=== PATIENT | female | born 1950 | race Caucasian/White ===

== ENCOUNTER 2017-11-07 05:21 | Inpatient (IN) | payer OTHER ==
[~2017-11-07] VITALS: Ht 152.4 cm; Wt 52.6 kg
[~2017-11-07 05:21] MED LIST: ACYC800 PO; CEPH500 PO; FLUSAL2505 IH; HYDACE5 PO; LEVSOD100; PROM25 PO; [UNRECOGNIZED DRUG - OTHER]; [UNRECOGNIZED DRUG - REMARK]; [UNRECOGNIZED DRUG - REMARK]
[2017-11-07 06:08] LABS: Hematocrit 31.6 % (33.0-51.0); Hemoglobin 11.1 g/dL (11.5-16.0); Mean Corpuscular HGB Conc 35.1 g/dL (31.5-36.5); Mean Corpuscular Volume 80 fL (80-100); Mean Platelet Volume 9.4 fL (9.1-12.4); Platelet Count 538 K/mm3 (150-400); RDW Coefficient Variation 14.6 % (11.7-14.2); RDW Standard Deviation 42.7 fL (35.1-46.3); Red Blood Cell Count 3.97 M/mm3 (3.80-5.20); White Blood Cell Count 7.69 K/mm3 (4.00-11.30)
[2017-11-07 06:28] LABS: Alanine Aminotransfer (ALT/SGP 33 U/L (12-78); Albumin, Blood 1.8 g/dL (3.4-5.0); Albumin/Globulin Ratio 0.4 (0.8-1.8); Alk Phos 106 U/L (50-136); Anion Gap 12 mmol/L (6-16); Aspartate Aminotrans (AST/SGOT 53 U/L (12-37); Bilirubin, Total 0.9 mg/dL (0.1-1.0); Blood Urea Nitrogen 14 mg/dL (8-24); Bun/Creatinine Ratio 23.1 (12.0-20.0); CO2, Blood 21 mmol/L (21-32); Calcium, Blood 7.9 mg/dL (8.5-10.1); Chloride, Blood 101 mmol/L (98-108); Creatinine, Blood 0.61 mg/dL (0.40-1.00); Globulin, Blood 5.1 g/dL (2.2-4.0); Glomerular Filtration Rate >60 (60-); Glucose, Blood 120 mg/dL (70-99); Potassium, Blood 2.6 mmol/L (3.5-5.5); Sodium, Blood 134 mmol/L (136-145); Total Protein, Blood 6.9 g/dL (6.4-8.2); Troponin I 0.022 ng/mL (0.000-0.040)
[2017-11-07 06:30] LABS: BAND PERCENT MAN 10 % (0-8); BASOPHILS PERCENT MAN 0 % (0-2); EOSINOPHILS PERCENT MAN 0 % (0-6); LYMPHOCYTES % ATYPICAL MANUAL 1 % (0-0); LYMPHOCYTES ABSOLUTE MAN 0.69 K/mm3 (0.84-5.20); LYMPHOCYTES PERCENT MAN 8 % (21-46); MONOCYTES ABSOLUTE MAN 0.46 K/mm3 (0.16-1.47); MONOCYTES PERCENT MAN 6 % (4-13); MYELOCYTE ABSOLUTE MAN 0.07 K/mm3 (0.00-0.00); MYELOCYTE PERCENT MAN 1 % (0-0); NEUTROPHILS ABSOLUTE MAN 6.45 K/mm3 (1.96-9.15); SEG NEUTROPHILS PERCENT MAN 74 % (41-73); TOTAL CELLS COUNTED 100
[2017-11-07 10:52] LABS: International Normalized Ratio 1.04; Prothrombin Time Results 10.7 Sec (9.7-11.5)
[2017-11-07 11:51] LABS: Appearance, Urine Clear (Clear); Bilirubin, Urine Neg (Neg); Blood, Urine Neg (Neg); Color, Urine Yellow (P-Yellow); Glucose Qualitative, Urine Neg (Neg); Ketones, Urine Neg (Neg); Leukocyte Esterase, Urine Neg (Neg); Nitrite, Urine Neg (Neg); Protein, Urine 1+ (Neg); Specific Gravity, Urine 1.015 (1.003-1.022); Urobilinogen, Urine 1+ (Normal)
[2017-11-07 11:54] LABS: Hematocrit 26.7 % (33.0-51.0); Mean Corpuscular HGB 27.6 pg (26.0-34.0); Mean Corpuscular HGB Conc 33.7 g/dL (31.5-36.5); Mean Corpuscular Volume 82 fL (80-100); Mean Platelet Volume 9.8 fL (9.1-12.4); Platelet Count 472 K/mm3 (150-400); RDW Coefficient Variation 14.9 % (11.7-14.2); RDW Standard Deviation 44.6 fL (35.1-46.3); Red Blood Cell Count 3.26 M/mm3 (3.80-5.20); White Blood Cell Count 6.03 K/mm3 (4.00-11.30)
[2017-11-07 12:01] LABS: Anion Gap 9 mmol/L (6-16); Blood Urea Nitrogen 10 mg/dL (8-24); Bun/Creatinine Ratio 20.8 (12.0-20.0); CO2, Blood 22 mmol/L (21-32); Calcium, Blood 6.8 mg/dL (8.5-10.1); Chloride, Blood 107 mmol/L (98-108); Creatinine, Blood 0.48 mg/dL (0.40-1.00); Glomerular Filtration Rate >60 (60-); Glucose, Blood 97 mg/dL (70-99); Potassium, Blood 3.1 mmol/L (3.5-5.5); Sodium, Blood 138 mmol/L (136-145)
[2017-11-07 12:18] LABS: BAND PERCENT MAN 16 % (0-8); BASOPHILS PERCENT MAN 0 % (0-2); EOSINOPHILS PERCENT MAN 0 % (0-6); LYMPHOCYTES ABSOLUTE MAN 1.08 K/mm3 (0.84-5.20); LYMPHOCYTES PERCENT MAN 18 % (21-46); MONOCYTES ABSOLUTE MAN 0.72 K/mm3 (0.16-1.47); MONOCYTES PERCENT MAN 12 % (4-13); MYELOCYTE ABSOLUTE MAN 0.06 K/mm3 (0.00-0.00); MYELOCYTE PERCENT MAN 1 % (0-0); NEUTROPHILS ABSOLUTE MAN 4.16 K/mm3 (1.96-9.15); SEG NEUTROPHILS PERCENT MAN 53 % (41-73); TOTAL CELLS COUNTED 100
[2017-11-07 16:21] LABS: PCO2 Arterial 47.4 mmHg (35-45); PO2 Arterial 104 mmHg (80-100)
[2017-11-07 16:22] LABS: pH Blood Arterial 7.29 (7.35-7.45)
[2017-11-07 19:25] LABS: Anion Gap 5 mmol/L (6-16); Blood Urea Nitrogen 8 mg/dL (8-24); Bun/Creatinine Ratio 17.5 (12.0-20.0); CO2, Blood 24 mmol/L (21-32); Calcium, Blood 6.6 mg/dL (8.5-10.1); Chloride, Blood 109 mmol/L (98-108); Creatinine, Blood 0.46 mg/dL (0.40-1.00); Glomerular Filtration Rate >60 (60-); Glucose, Blood 119 mg/dL (70-99); Magnesium, Blood 1.5 mg/dL (1.6-2.4); Phosphorus, Blood 2.4 mg/dL (2.5-4.9); Potassium, Blood 3.7 mmol/L (3.5-5.5); Sodium, Blood 138 mmol/L (136-145)
[2017-11-08 04:37] LABS: Hematocrit 24.8 % (33.0-51.0); Hemoglobin 8.4 g/dL (11.5-16.0); Mean Corpuscular HGB Conc 33.9 g/dL (31.5-36.5); Mean Corpuscular Volume 83 fL (80-100); Mean Platelet Volume 9.5 fL (9.1-12.4); Platelet Count 386 K/mm3 (150-400); RDW Coefficient Variation 15.4 % (11.7-14.2); RDW Standard Deviation 46.2 fL (35.1-46.3)
[2017-11-08 04:54] LABS: Alanine Aminotransfer (ALT/SGP 18 U/L (12-78); Albumin, Blood 0.9 g/dL (3.4-5.0); Alk Phos 54 U/L (50-136); Anion Gap 7 mmol/L (6-16); Aspartate Aminotrans (AST/SGOT 20 U/L (12-37); Bilirubin, Total 0.3 mg/dL (0.1-1.0); Blood Urea Nitrogen 8 mg/dL (8-24); Bun/Creatinine Ratio 20.1 (12.0-20.0); CO2, Blood 24 mmol/L (21-32); Calcium, Blood 6.4 mg/dL (8.5-10.1); Chloride, Blood 107 mmol/L (98-108); Glomerular Filtration Rate >60 (60-); Glucose, Blood 235 mg/dL (70-99); Phosphorus, Blood 1.1 mg/dL (2.5-4.9); Potassium, Blood 2.6 mmol/L (3.5-5.5); Sodium, Blood 138 mmol/L (136-145)
[2017-11-08 04:55] LABS: BAND PERCENT MAN 26 % (0-8); BASOPHILS PERCENT MAN 0 % (0-2); EOSINOPHILS ABSOLUTE MAN 0.18 K/mm3 (0.00-0.68); EOSINOPHILS PERCENT MAN 2 % (0-6); LYMPHOCYTES ABSOLUTE MAN 0.63 K/mm3 (0.84-5.20); LYMPHOCYTES PERCENT MAN 7 % (21-46); METAMYELOCYTE ABSOLUTE MAN 0.27 K/mm3 (0.00-0.00); METAMYELOCYTE PERCENT MAN 3 % (0-0); MONOCYTES ABSOLUTE MAN 0.45 K/mm3 (0.16-1.47); MONOCYTES PERCENT MAN 5 % (4-13); NEUTROPHILS ABSOLUTE MAN 7.47 K/mm3 (1.96-9.15); SEG NEUTROPHILS PERCENT MAN 57 % (41-73); TOTAL CELLS COUNTED 100
[2017-11-08 04:59] LABS: Albumin/Globulin Ratio 0.3 (0.8-1.8); Globulin, Blood 2.9 g/dL (2.2-4.0)
[2017-11-08 05:37] LABS: Total Protein, Blood 3.8 g/dL (6.4-8.2)
[2017-11-08 05:50] LABS: PCO2 Arterial 35.3 mmHg (35-45); PO2 Arterial 71.5 mmHg (80-100); pH Blood Arterial 7.45 (7.35-7.45)
[2017-11-08 13:36] LABS: Phosphorus, Blood 3.8 mg/dL (2.5-4.9); Potassium, Blood 2.9 mmol/L (3.5-5.5)
[2017-11-09 04:06] LABS: BASOPHILS ABSOLUTE AUTO 0.05 K/mm3 (0.00-0.23); BASOPHILS PERCENT AUTO 0 % (0-2); Hemoglobin 7.8 g/dL (11.5-16.0); Mean Corpuscular HGB 27.6 pg (26.0-34.0); Mean Corpuscular HGB Conc 33.9 g/dL (31.5-36.5); Mean Corpuscular Volume 81 fL (80-100); Mean Platelet Volume 9.6 fL (9.1-12.4); Platelet Count 418 K/mm3 (150-400); RDW Coefficient Variation 15.3 % (11.7-14.2); RDW Standard Deviation 44.9 fL (35.1-46.3); Red Blood Cell Count 2.83 M/mm3 (3.80-5.20)
[2017-11-09 04:10] LABS: EOSINOPHILS ABSOLUTE AUTO 0.37 K/mm3 (0.00-0.68); EOSINOPHILS PERCENT AUTO 3 % (0-6); IMMATURE GRAN PERCENT AUTO 5 % (0-1); LYMPHOCYTES ABSOLUTE AUTO 1.51 K/mm3 (0.84-5.20); LYMPHOCYTES PERCENT AUTO 13 % (21-46); MONOCYTES ABSOLUTE AUTO 0.98 K/mm3 (0.16-1.47); MONOCYTES PERCENT AUTO 9 % (4-13); NEUTROPHILS ABSOLUTE AUTO 7.89 K/mm3 (1.96-9.15); NEUTROPHILS PERCENT AUTO 69 % (41-73)
[2017-11-09 04:23] LABS: Anion Gap 7 mmol/L (6-16); Blood Urea Nitrogen 5 mg/dL (8-24); Bun/Creatinine Ratio 10.6 (12.0-20.0); CO2, Blood 28 mmol/L (21-32); Calcium, Blood 6.9 mg/dL (8.5-10.1); Chloride, Blood 104 mmol/L (98-108); Creatinine, Blood 0.47 mg/dL (0.40-1.00); Glomerular Filtration Rate >60 (60-); Glucose, Blood 127 mg/dL (70-99); Magnesium, Blood 1.6 mg/dL (1.6-2.4); Phosphorus, Blood 3.2 mg/dL (2.5-4.9); Potassium, Blood 3.4 mmol/L (3.5-5.5); Sodium, Blood 139 mmol/L (136-145)
[2017-11-09 04:25] LABS: BAND PERCENT MAN 3 % (0-8); BASOPHILS PERCENT MAN 0 % (0-2); EOSINOPHILS ABSOLUTE MAN 0.68 K/mm3 (0.00-0.68); EOSINOPHILS PERCENT MAN 6 % (0-6); LYMPHOCYTES ABSOLUTE MAN 1.36 K/mm3 (0.84-5.20); LYMPHOCYTES PERCENT MAN 12 % (21-46); METAMYELOCYTE ABSOLUTE MAN 0.11 K/mm3 (0.00-0.00); METAMYELOCYTE PERCENT MAN 1 % (0-0); MONOCYTES ABSOLUTE MAN 0.79 K/mm3 (0.16-1.47); MONOCYTES PERCENT MAN 7 % (4-13); NEUTROPHILS ABSOLUTE MAN 8.43 K/mm3 (1.96-9.15); SEG NEUTROPHILS PERCENT MAN 71 % (41-73); TOTAL CELLS COUNTED 100
[2017-11-10 04:39] LABS: Hematocrit 27.5 % (33.0-51.0); Hemoglobin 9.4 g/dL (11.5-16.0); Mean Corpuscular HGB 28.2 pg (26.0-34.0); Mean Corpuscular HGB Conc 34.2 g/dL (31.5-36.5); Mean Corpuscular Volume 83 fL (80-100); Mean Platelet Volume 9.6 fL (9.1-12.4); NRBC ABSOLUTE 0.03 K/mm3 (0.00-0.02); NRBC Auto 0.3 /100 WBC (0.0-0.2); Platelet Count 414 K/mm3 (150-400); RDW Coefficient Variation 15.3 % (11.7-14.2); RDW Standard Deviation 45.5 fL (35.1-46.3); Red Blood Cell Count 3.33 M/mm3 (3.80-5.20); White Blood Cell Count 11.71 K/mm3 (4.00-11.30)
[2017-11-10 04:59] LABS: Albumin, Blood 1.2 g/dL (3.4-5.0); Anion Gap 5 mmol/L (6-16); Blood Urea Nitrogen 7 mg/dL (8-24); Bun/Creatinine Ratio 12.3 (12.0-20.0); CO2, Blood 31 mmol/L (21-32); Calcium, Blood 7.6 mg/dL (8.5-10.1); Chloride, Blood 104 mmol/L (98-108); Creatinine, Blood 0.57 mg/dL (0.40-1.00); Glomerular Filtration Rate >60 (60-); Glucose, Blood 96 mg/dL (70-99); Magnesium, Blood 1.7 mg/dL (1.6-2.4); Phosphorus, Blood 4.5 mg/dL (2.5-4.9); Potassium, Blood 4.4 mmol/L (3.5-5.5); Sodium, Blood 140 mmol/L (136-145)
[2017-11-10 05:28] LABS: BAND PERCENT MAN 5 % (0-8); BASOPHILS ABSOLUTE MAN 0.23 K/mm3 (0.00-0.23); BASOPHILS PERCENT MAN 2 % (0-2); EOSINOPHILS ABSOLUTE MAN 0.11 K/mm3 (0.00-0.68); EOSINOPHILS PERCENT MAN 1 % (0-6); LYMPHOCYTES % ATYPICAL MANUAL 1 % (0-0); LYMPHOCYTES ABSOLUTE MAN 1.28 K/mm3 (0.84-5.20); LYMPHOCYTES PERCENT MAN 10 % (21-46); METAMYELOCYTE ABSOLUTE MAN 0.35 K/mm3 (0.00-0.00); METAMYELOCYTE PERCENT MAN 3 % (0-0); MONOCYTES ABSOLUTE MAN 0.58 K/mm3 (0.16-1.47); MONOCYTES PERCENT MAN 5 % (4-13); MYELOCYTE ABSOLUTE MAN 0.46 K/mm3 (0.00-0.00); MYELOCYTE PERCENT MAN 4 % (0-0); NEUTROPHILS ABSOLUTE MAN 8.78 K/mm3 (1.96-9.15); SEG NEUTROPHILS PERCENT MAN 70 % (41-73); TOTAL CELLS COUNTED 123
[2017-11-11 04:38] LABS: Hematocrit 28.4 % (33.0-51.0); Hemoglobin 9.5 g/dL (11.5-16.0); Mean Corpuscular HGB 28.4 pg (26.0-34.0); Mean Corpuscular HGB Conc 33.5 g/dL (31.5-36.5); Mean Corpuscular Volume 85 fL (80-100); Mean Platelet Volume 9.6 fL (9.1-12.4); Platelet Count 458 K/mm3 (150-400); RDW Coefficient Variation 15.8 % (11.7-14.2); RDW Standard Deviation 46.9 fL (35.1-46.3); Red Blood Cell Count 3.34 M/mm3 (3.80-5.20); White Blood Cell Count 16.89 K/mm3 (4.00-11.30)
[2017-11-11 04:56] LABS: Albumin, Blood 1.4 g/dL (3.4-5.0); Anion Gap 6 mmol/L (6-16); Blood Urea Nitrogen 11 mg/dL (8-24); Bun/Creatinine Ratio 19.9 (12.0-20.0); CO2, Blood 29 mmol/L (21-32); Calcium, Blood 7.5 mg/dL (8.5-10.1); Chloride, Blood 109 mmol/L (98-108); Creatinine, Blood 0.55 mg/dL (0.40-1.00); Glomerular Filtration Rate >60 (60-); Glucose, Blood 135 mg/dL (70-99); Phosphorus, Blood 3.8 mg/dL (2.5-4.9); Potassium, Blood 4.2 mmol/L (3.5-5.5); Sodium, Blood 144 mmol/L (136-145)
[2017-11-11 05:07] LABS: BAND PERCENT MAN 7 % (0-8); BASOPHILS ABSOLUTE MAN 0.16 K/mm3 (0.00-0.23); BASOPHILS PERCENT MAN 1 % (0-2); EOSINOPHILS PERCENT MAN 0 % (0-6); LYMPHOCYTES PERCENT MAN 3 % (21-46); METAMYELOCYTE ABSOLUTE MAN 0.16 K/mm3 (0.00-0.00); METAMYELOCYTE PERCENT MAN 1 % (0-0); MONOCYTES ABSOLUTE MAN 0.67 K/mm3 (0.16-1.47); MONOCYTES PERCENT MAN 4 % (4-13); MYELOCYTE ABSOLUTE MAN 0.33 K/mm3 (0.00-0.00); MYELOCYTE PERCENT MAN 2 % (0-0); NEUTROPHILS ABSOLUTE MAN 15.03 K/mm3 (1.96-9.15); SEG NEUTROPHILS PERCENT MAN 82 % (41-73); TOTAL CELLS COUNTED 100
[2017-11-12 04:06] LABS: Hematocrit 30.8 % (33.0-51.0); Mean Corpuscular HGB 28.6 pg (26.0-34.0); Mean Corpuscular HGB Conc 32.5 g/dL (31.5-36.5); Mean Platelet Volume 9.5 fL (9.1-12.4); NRBC ABSOLUTE 0.02 K/mm3 (0.00-0.02); NRBC Auto 0.1 /100 WBC (0.0-0.2); Platelet Count 485 K/mm3 (150-400); RDW Standard Deviation 50.5 fL (35.1-46.3); White Blood Cell Count 14.28 K/mm3 (4.00-11.30)
[2017-11-12 04:07] LABS: Mean Corpuscular Volume 88 fL (80-100)
[2017-11-12 04:22] LABS: Albumin, Blood 1.6 g/dL (3.4-5.0); Anion Gap 7 mmol/L (6-16); Blood Urea Nitrogen 13 mg/dL (8-24); Bun/Creatinine Ratio 21.3 (12.0-20.0); CO2, Blood 26 mmol/L (21-32); Calcium, Blood 7.8 mg/dL (8.5-10.1); Chloride, Blood 109 mmol/L (98-108); Creatinine, Blood 0.61 mg/dL (0.40-1.00); Glomerular Filtration Rate >60 (60-); Glucose, Blood 81 mg/dL (70-99); Phosphorus, Blood 3.4 mg/dL (2.5-4.9); Potassium, Blood 4.3 mmol/L (3.5-5.5); Sodium, Blood 142 mmol/L (136-145)
[2017-11-12 04:31] LABS: BAND PERCENT MAN 6 % (0-8); BASOPHILS ABSOLUTE MAN 0.14 K/mm3 (0.00-0.23); BASOPHILS PERCENT MAN 1 % (0-2); EOSINOPHILS ABSOLUTE MAN 0.14 K/mm3 (0.00-0.68); EOSINOPHILS PERCENT MAN 1 % (0-6); LYMPHOCYTES ABSOLUTE MAN 0.85 K/mm3 (0.84-5.20); LYMPHOCYTES PERCENT MAN 6 % (21-46); METAMYELOCYTE ABSOLUTE MAN 0.14 K/mm3 (0.00-0.00); METAMYELOCYTE PERCENT MAN 1 % (0-0); MONOCYTES ABSOLUTE MAN 0.42 K/mm3 (0.16-1.47); MONOCYTES PERCENT MAN 3 % (4-13); MYELOCYTE ABSOLUTE MAN 0.14 K/mm3 (0.00-0.00); MYELOCYTE PERCENT MAN 1 % (0-0); NEUTROPHILS ABSOLUTE MAN 12.42 K/mm3 (1.96-9.15); SEG NEUTROPHILS PERCENT MAN 81 % (41-73); TOTAL CELLS COUNTED 100
[2017-11-13 04:32] LABS: Hematocrit 29.2 % (33.0-51.0); Hemoglobin 9.7 g/dL (11.5-16.0); Mean Corpuscular HGB Conc 33.2 g/dL (31.5-36.5); Mean Corpuscular Volume 87 fL (80-100); Mean Platelet Volume 9.6 fL (9.1-12.4); Platelet Count 501 K/mm3 (150-400); RDW Coefficient Variation 17.1 % (11.7-14.2); RDW Standard Deviation 50.7 fL (35.1-46.3); Red Blood Cell Count 3.35 M/mm3 (3.80-5.20); White Blood Cell Count 14.83 K/mm3 (4.00-11.30)
[2017-11-13 04:51] LABS: Alanine Aminotransfer (ALT/SGP 15 U/L (12-78); Albumin, Blood 1.7 g/dL (3.4-5.0); Albumin/Globulin Ratio 0.4 (0.8-1.8); Alk Phos 120 U/L (50-136); Anion Gap 8 mmol/L (6-16); Aspartate Aminotrans (AST/SGOT 28 U/L (12-37); Bilirubin, Direct 0.1 mg/dL (0.0-0.3); Bilirubin, Indirect 0.2 mg/dL (0.1-0.7); Bilirubin, Total 0.3 mg/dL (0.1-1.0); Blood Urea Nitrogen 14 mg/dL (8-24); Bun/Creatinine Ratio 22.2 (12.0-20.0); CO2, Blood 27 mmol/L (21-32); Calcium, Blood 7.8 mg/dL (8.5-10.1); Chloride, Blood 106 mmol/L (98-108); Creatinine, Blood 0.63 mg/dL (0.40-1.00); Globulin, Blood 4.3 g/dL (2.2-4.0); Glomerular Filtration Rate >60 (60-); Glucose, Blood 98 mg/dL (70-99); Magnesium, Blood 2.4 mg/dL (1.6-2.4); Phosphorus, Blood 4.1 mg/dL (2.5-4.9); Potassium, Blood 3.8 mmol/L (3.5-5.5); Sodium, Blood 141 mmol/L (136-145)
[2017-11-13 04:55] LABS: BAND PERCENT MAN 6 % (0-8); BASOPHILS PERCENT MAN 0 % (0-2); EOSINOPHILS PERCENT MAN 0 % (0-6); LYMPHOCYTES ABSOLUTE MAN 0.88 K/mm3 (0.84-5.20); LYMPHOCYTES PERCENT MAN 6 % (21-46); METAMYELOCYTE ABSOLUTE MAN 0.14 K/mm3 (0.00-0.00); METAMYELOCYTE PERCENT MAN 1 % (0-0); MONOCYTES ABSOLUTE MAN 0.59 K/mm3 (0.16-1.47); MONOCYTES PERCENT MAN 4 % (4-13); MYELOCYTE ABSOLUTE MAN 0.29 K/mm3 (0.00-0.00); MYELOCYTE PERCENT MAN 2 % (0-0); SEG NEUTROPHILS PERCENT MAN 81 % (41-73); TOTAL CELLS COUNTED 100
[2017-11-14 06:16] LABS: Hematocrit 31.2 % (33.0-51.0); Hemoglobin 10.1 g/dL (11.5-16.0); Mean Corpuscular HGB 28.1 pg (26.0-34.0); Mean Corpuscular HGB Conc 32.4 g/dL (31.5-36.5); Mean Corpuscular Volume 87 fL (80-100); Mean Platelet Volume 10.1 fL (9.1-12.4); Platelet Count 565 K/mm3 (150-400); RDW Coefficient Variation 17.6 % (11.7-14.2); RDW Standard Deviation 51.7 fL (35.1-46.3); White Blood Cell Count 13.14 K/mm3 (4.00-11.30)
[2017-11-14 06:39] LABS: Albumin, Blood 1.8 g/dL (3.4-5.0); Anion Gap 7 mmol/L (6-16); Blood Urea Nitrogen 12 mg/dL (8-24); CO2, Blood 25 mmol/L (21-32); Calcium, Blood 8.5 mg/dL (8.5-10.1); Chloride, Blood 109 mmol/L (98-108); Glomerular Filtration Rate >60 (60-); Glucose, Blood 109 mg/dL (70-99); Phosphorus, Blood 4.4 mg/dL (2.5-4.9); Potassium, Blood 4.1 mmol/L (3.5-5.5); Sodium, Blood 141 mmol/L (136-145)
[2017-11-14 06:41] LABS: BASOPHILS PERCENT MAN 0 % (0-2); EOSINOPHILS ABSOLUTE MAN 0.52 K/mm3 (0.00-0.68); EOSINOPHILS PERCENT MAN 4 % (0-6); LYMPHOCYTES ABSOLUTE MAN 0.65 K/mm3 (0.84-5.20); LYMPHOCYTES PERCENT MAN 5 % (21-46); METAMYELOCYTE ABSOLUTE MAN 0.39 K/mm3 (0.00-0.00); METAMYELOCYTE PERCENT MAN 3 % (0-0); MONOCYTES ABSOLUTE MAN 0.13 K/mm3 (0.16-1.47); MONOCYTES PERCENT MAN 1 % (4-13); MYELOCYTE ABSOLUTE MAN 0.13 K/mm3 (0.00-0.00); MYELOCYTE PERCENT MAN 1 % (0-0); SEG NEUTROPHILS PERCENT MAN 86 % (41-73); TOTAL CELLS COUNTED 100
[2017-11-15 05:54] LABS: BASOPHILS ABSOLUTE AUTO 0.05 K/mm3 (0.00-0.23); BASOPHILS PERCENT AUTO 0 % (0-2); EOSINOPHILS ABSOLUTE AUTO 0.39 K/mm3 (0.00-0.68); EOSINOPHILS PERCENT AUTO 3 % (0-6); Hematocrit 29.5 % (33.0-51.0); Hemoglobin 9.8 g/dL (11.5-16.0); IMMATURE GRAN ABSOLUTE AUTO 0.47 K/mm3 (0.00-0.10); IMMATURE GRAN PERCENT AUTO 4 % (0-1); LYMPHOCYTES ABSOLUTE AUTO 1.07 K/mm3 (0.84-5.20); LYMPHOCYTES PERCENT AUTO 9 % (21-46); MONOCYTES ABSOLUTE AUTO 0.59 K/mm3 (0.16-1.47); MONOCYTES PERCENT AUTO 5 % (4-13); Mean Corpuscular HGB Conc 33.2 g/dL (31.5-36.5); Mean Corpuscular Volume 87 fL (80-100); Mean Platelet Volume 9.9 fL (9.1-12.4); NEUTROPHILS ABSOLUTE AUTO 9.66 K/mm3 (1.96-9.15); NEUTROPHILS PERCENT AUTO 79 % (41-73); Platelet Count 554 K/mm3 (150-400); RDW Coefficient Variation 17.6 % (11.7-14.2); Red Blood Cell Count 3.38 M/mm3 (3.80-5.20); White Blood Cell Count 12.23 K/mm3 (4.00-11.30)
[2017-11-15 06:13] LABS: Albumin, Blood 1.8 g/dL (3.4-5.0); Anion Gap 9 mmol/L (6-16); Blood Urea Nitrogen 13 mg/dL (8-24); Bun/Creatinine Ratio 21.3 (12.0-20.0); CO2, Blood 22 mmol/L (21-32); Chloride, Blood 112 mmol/L (98-108); Creatinine, Blood 0.61 mg/dL (0.40-1.00); Glomerular Filtration Rate >60 (60-); Glucose, Blood 91 mg/dL (70-99); Phosphorus, Blood 4.3 mg/dL (2.5-4.9); Potassium, Blood 3.8 mmol/L (3.5-5.5); Sodium, Blood 143 mmol/L (136-145)
[2017-11-16] MEDS ORDERED: ACET325 PO (10:21)
[2017-11-16] MEDS ORDERED: HYDR1TAB94 PO (10:21)
[2017-11-16] MEDS ORDERED: AMOX875 PO (10:24)
[2017-11-16] MEDS ORDERED: PROM25 PO (10:25)
== END 2017-11-16 13:25 | disposition home or self-care (01) | DRG 853 ==
LOC: ER 05:21 → ICUW 08:23 → ICUE 08:23 → SURS 11-12 15:06
PROVIDERS: Emergency Medicine; Family Medicine; Internal Medicine; Internal Medicine Critical Care Medicine; Surgery
PROC: 0DBL0ZZ Excision of Transverse Colon, Open Approach (ICD-10-PCS; 2017-11-07)
PROC: 0DBM0ZZ Excision of Descending Colon, Open Approach (ICD-10-PCS; 2017-11-07)
PROC: 0DBH0ZZ Excision of Cecum, Open Approach (ICD-10-PCS; 2017-11-07)
PROC: 05HM33Z Insertion of Infusion Device into Right Internal Jugular Vein, Percutaneous Approach (ICD-10-PCS; principal; 2017-11-07 12:30)
PROC: 0DBK0ZZ Excision of Ascending Colon, Open Approach (ICD-10-PCS; 2017-11-07 12:30)
PROC: 30233N1 Transfusion of Nonautologous Red Blood Cells into Peripheral Vein, Percutaneous Approach (ICD-10-PCS; 2017-11-08)
PROC: 0D1B0Z4 Bypass Ileum to Cutaneous, Open Approach (ICD-10-PCS; 2017-11-10)
PROC: 3E033XZ Introduction of Vasopressor into Peripheral Vein, Percutaneous Approach (ICD-10-PCS; 2017-11-10)
DX: A41.9 Sepsis, unspecified organism (principal); K65.9 Peritonitis, unspecified; R65.21 Severe sepsis with septic shock; J96.01 Acute respiratory failure with hypoxia; K55.059 Acute (reversible) ischemia of intestine, part and extent unspecified; G92 Toxic encephalopathy; E46 Unspecified protein-calorie malnutrition; Z68.1 Body mass index [BMI] 19.9 or less, adult; E87.4 Mixed disorder of acid-base balance; N39.0 Urinary tract infection, site not specified; E89.0 Postprocedural hypothyroidism; J44.9 Chronic obstructive pulmonary disease, unspecified; F17.210 Nicotine dependence, cigarettes, uncomplicated; K52.9 Noninfective gastroenteritis and colitis, unspecified; Z85.850 Personal history of malignant neoplasm of thyroid; E87.6 Hypokalemia; E83.39 Other disorders of phosphorus metabolism; E87.8 Other disorders of electrolyte and fluid balance, not elsewhere classified; E83.51 Hypocalcemia; D69.6 Thrombocytopenia, unspecified; K21.9 Gastro-esophageal reflux disease without esophagitis; E11.65 Type 2 diabetes mellitus with hyperglycemia
CPT/HCPCS: 31720; 36415; 36430; 36556; 36600; 51702; 71045; 74174; 74176; 80048; 80053; 80069; 82248; 82330; 82803; 82947; 83605; 83690; 83735; 84100; 84132; 84145; 84484; 85025; 85610; 85730; 86850; 86900; 86901; 86923; 87040; 87070; 87086; 87205; 88307; 93005; 93010; 94002; 94003; 94640; 94667; 94668; 94760; 94761; 96361; 96365; 96366; 96368; 96375; 96376; 97110; 97116; 97162; 97166; 97530; 97535; 99285-25; C1751; C9113; G0480; G8978; G8979; G8987; G8988; J0744; J1644; J1815; J1940; J2370; J2405; J2543; J2710; J3010; J3411; J3475; J3480; J7030; J7060; J7120; P9016; P9041; Q9967

== ENCOUNTER 2018-08-12 13:02 | Inpatient (IN) | payer OTHER ==
[~2018-08-12] VITALS: Ht 152.4 cm; Wt 46.3 kg
[~2018-08-12 13:02] MED LIST changes: +ACET325 PO; +AMOX875 PO; +HYDR1TAB94 PO
[2018-08-12 14:20] LABS: BASOPHILS ABSOLUTE AUTO 0.03 K/mm3 (0.00-0.23); BASOPHILS PERCENT AUTO 0 % (0-2); EOSINOPHILS ABSOLUTE AUTO 0.02 K/mm3 (0.00-0.68); EOSINOPHILS PERCENT AUTO 0 % (0-6); Hematocrit 44.6 % (33.0-51.0); Hemoglobin 15.4 g/dL (11.5-16.0); IMMATURE GRAN ABSOLUTE AUTO 0.09 K/mm3 (0.00-0.10); IMMATURE GRAN PERCENT AUTO 1 % (0-1); LYMPHOCYTES ABSOLUTE AUTO 0.83 K/mm3 (0.84-5.20); LYMPHOCYTES PERCENT AUTO 10 % (21-46); MONOCYTES ABSOLUTE AUTO 0.84 K/mm3 (0.16-1.47); MONOCYTES PERCENT AUTO 10 % (4-13); Mean Corpuscular HGB 29.3 pg (26.0-34.0); Mean Corpuscular HGB Conc 34.5 g/dL (31.5-36.5); Mean Platelet Volume 10.2 fL (9.1-12.4); NEUTROPHILS ABSOLUTE AUTO 6.97 K/mm3 (1.96-9.15); NEUTROPHILS PERCENT AUTO 79 % (41-73); Platelet Count 359 K/mm3 (150-400); RDW Coefficient Variation 13.8 % (11.7-14.2); RDW Standard Deviation 42.8 fL (35.1-46.3); Red Blood Cell Count 5.26 M/mm3 (3.80-5.20); White Blood Cell Count 8.78 K/mm3 (4.00-11.30)
[2018-08-12 14:22] LABS: Mean Corpuscular Volume 85 fL (80-100)
[2018-08-12 14:35] LABS: Albumin, Blood 3.4 g/dL (3.4-5.0); Albumin/Globulin Ratio 0.7 (0.8-1.8); Bilirubin, Total 0.6 mg/dL (0.1-1.0); Bun/Creatinine Ratio 59.5 (12.0-20.0); Calcium, Blood 8.6 mg/dL (8.5-10.1); Creatinine, Blood 1.73 mg/dL (0.40-1.00); Globulin, Blood 5.1 g/dL (2.2-4.0); Potassium, Blood 3.7 mmol/L (3.5-5.5); Total Protein, Blood 8.5 g/dL (6.4-8.2)
[2018-08-12] MEDS ORDERED: Synthroid75 MCG PO (15:02)
[2018-08-12] MEDS ORDERED: SERT100 PO (15:02)
[2018-08-12] MEDS ORDERED: VITAMIN D32000 UNI1 PO (15:35)
--- NOTE | 2018-08-12 18:16 | NUR ---
SHIFT SUMMARY ED ADMIT THIS EVENING. PATIENT DENIES PAIN, NAUSEA, AND SHORTNESS OF BREATH. PATIENT ORIENTED TO ROOM AND SETTLED INTO BED. PATIENT ASSISTED TO EMPTY OSOTOMY. PATIENT UP SBA TO BSC. PATIENT DECLINED DINNER BUT WAS GIVEN A SNACK. CALL LIGHT IN REACH, WILL CONTINUE TO MONITOR.
--- NOTE | 2018-08-13 03:07 | NUR ---
ASSUMED CARE APPROXIMATELY 1900 FROM GLORY ARCHER; PT IS A&O; WEAK; SBA TO BSC; ENCOURAGED PO INTAKE; MULTIPLE FAMILY MEMBERS IN THE ROOM ASKING ABOUT CARE; PATEL HOLLINS RN AT BEDSIDE EDUCATING PT AND FAMILY; PHONE CALL TO PROVIDER FOR ORDER FOR THYROID MEDICATION AND NICOTINE PATCH; PT C/O HEADACHE, TYLENOL WAS ADMINISTERED PER ORDERS; OSTOMY WAS CHANGED DURING DAY SHIFT; PT STATES SHE GAGS EASILY AND HAS TROUBLE SWALLOWING; DIET CHANGED TO MECHANICAL SOFT; LR INFUSING PER ORDERS; CALL LIGHT WITHIN REACH; BED IN LOWEST POSITION; WILL CONTINUE TO MONITOR AND ASSESS UNTIL HANDOFF TO DAY SHIFT RN.
[2018-08-13 04:19] LABS: BASOPHILS ABSOLUTE AUTO 0.02 K/mm3 (0.00-0.23); BASOPHILS PERCENT AUTO 0 % (0-2); EOSINOPHILS ABSOLUTE AUTO 0.13 K/mm3 (0.00-0.68); EOSINOPHILS PERCENT AUTO 2 % (0-6); Hematocrit 37.6 % (33.0-51.0); Hemoglobin 13.4 g/dL (11.5-16.0); IMMATURE GRAN ABSOLUTE AUTO 0.14 K/mm3 (0.00-0.10); IMMATURE GRAN PERCENT AUTO 2 % (0-1); LYMPHOCYTES ABSOLUTE AUTO 1.03 K/mm3 (0.84-5.20); LYMPHOCYTES PERCENT AUTO 13 % (21-46); MONOCYTES ABSOLUTE AUTO 0.71 K/mm3 (0.16-1.47); MONOCYTES PERCENT AUTO 9 % (4-13); Mean Corpuscular HGB 28.8 pg (26.0-34.0); Mean Corpuscular HGB Conc 35.6 g/dL (31.5-36.5); Mean Platelet Volume 10.4 fL (9.1-12.4); NEUTROPHILS ABSOLUTE AUTO 5.83 K/mm3 (1.96-9.15); NEUTROPHILS PERCENT AUTO 74 % (41-73); Platelet Count 325 K/mm3 (150-400); RDW Coefficient Variation 13.2 % (11.7-14.2); RDW Standard Deviation 38.8 fL (35.1-46.3); Red Blood Cell Count 4.65 M/mm3 (3.80-5.20); White Blood Cell Count 7.86 K/mm3 (4.00-11.30)
[2018-08-13 04:20] LABS: Mean Corpuscular Volume 81 fL (80-100)
[2018-08-13 04:43] LABS: Anion Gap 14 mmol/L (6-16); Blood Urea Nitrogen 70 mg/dL (8-24); Bun/Creatinine Ratio 75.4 (12.0-20.0); CO2, Blood 19 mmol/L (21-32); Calcium, Blood 8.1 mg/dL (8.5-10.1); Chloride, Blood 96 mmol/L (98-108); Creatinine, Blood 0.93 mg/dL (0.40-1.00); Glomerular Filtration Rate >60 (60-); Glucose, Blood 78 mg/dL (70-99); Potassium, Blood 2.6 mmol/L (3.5-5.5); Sodium, Blood 129 mmol/L (136-145)
[2018-08-13 12:11] LABS: Source, Urine Clean Catch
[2018-08-13 12:20] LABS: Appearance, Urine Hazy (Clear); Bilirubin, Urine Neg (Neg); Blood, Urine 3+ (Neg); Color, Urine Yellow (P-Yellow); Glucose Qualitative, Urine 1+ (Neg); Ketones, Urine Neg (Neg); Leukocyte Esterase, Urine 3+ (Neg); Nitrite, Urine Neg (Neg); Protein, Urine 1+ (Neg); Urobilinogen, Urine NORM (Normal)
[2018-08-13 12:37] LABS: White Blood Cells, Urine 50-100 /hpf (0-5)
[2018-08-13 12:39] LABS: Bacteria Mod /hpf; Squamous Epithelial Cells Mod /hpf (Few); Trichomonas Few /hpf
[2018-08-13 12:40] LABS: Mucus Light (0-Heavy)
--- NOTE | 2018-08-13 14:35 | NUR ---
RECEIVED REPORT FROM NOC RN AND ASSUMED CARE OF PATIENT. SHE HAS SLEPT OFF AND ON THROUGHOUT THE MORNING AND STATES THAT SHE IS REALLY TIRED FROM NOT SLEEPING WELL LAST NIGHT. PT UP TO BSC TO URINATE AND ADDITIONALLY ASSISTED WITH OSTOMY BAG CLEAN OUT. PT ABLE TO EXPRESS NEEDS APPROPRIATELY, SHE IS PLEASANT, A BIT WITHDRAWN, WILL CONTINUE TO MONITOR AND FOLLOW ORDERS. BED IS LOCKED AND LOW, CALL LIGHT WITHIN EASY REACH.
--- NOTE | 2018-08-13 18:47 | NUR ---
PT AFFECT HAS IMPROVED DURING THIS SHIFT. SHE HAS SPENT SIGNIFICANT TIME WITH FAMILY TODAY AND WENT FOR A LONG WALK WITH HER DAUGHTER AND THREE GRANDCHILDREN. PT TOLERATED WELL AND CAME BACK REFRESHED AND WITH A MUCH BRIGHTER COUNTENANCE. PT CONTINUES TO HAVE O2 SAT >96% ON ROOM AIR. OSTOMY BAG CHANGED TODAY, PT HAS BEEN MANAGING THE EMPTYING AND MANAGEMENT OF HER COLOSTOMY BAG. WILL CONTINUE TO MONIOTOR AND GIVE REPORT TO NOC RN. BED LOCKED AND LOW, CALL LIGHT WITHIN EASY REACH.
[2018-08-14 04:19] LABS: BASOPHILS ABSOLUTE AUTO 0.02 K/mm3 (0.00-0.23); BASOPHILS PERCENT AUTO 0 % (0-2); EOSINOPHILS ABSOLUTE AUTO 0.17 K/mm3 (0.00-0.68); EOSINOPHILS PERCENT AUTO 2 % (0-6); Hematocrit 36.1 % (33.0-51.0); Hemoglobin 12.7 g/dL (11.5-16.0); IMMATURE GRAN PERCENT AUTO 4 % (0-1); LYMPHOCYTES ABSOLUTE AUTO 1.12 K/mm3 (0.84-5.20); LYMPHOCYTES PERCENT AUTO 14 % (21-46); MONOCYTES ABSOLUTE AUTO 0.83 K/mm3 (0.16-1.47); MONOCYTES PERCENT AUTO 10 % (4-13); Mean Corpuscular HGB 29.2 pg (26.0-34.0); Mean Corpuscular HGB Conc 35.2 g/dL (31.5-36.5); Mean Corpuscular Volume 83 fL (80-100); NEUTROPHILS ABSOLUTE AUTO 5.63 K/mm3 (1.96-9.15); NEUTROPHILS PERCENT AUTO 70 % (41-73); Platelet Count 313 K/mm3 (150-400); RDW Coefficient Variation 13.4 % (11.7-14.2); RDW Standard Deviation 40.7 fL (35.1-46.3); Red Blood Cell Count 4.35 M/mm3 (3.80-5.20); White Blood Cell Count 8.07 K/mm3 (4.00-11.30)
[2018-08-14 04:37] LABS: Anion Gap 8 mmol/L (6-16); Blood Urea Nitrogen 31 mg/dL (8-24); Bun/Creatinine Ratio 45.3 (12.0-20.0); CO2, Blood 24 mmol/L (21-32); Calcium, Blood 8.4 mg/dL (8.5-10.1); Chloride, Blood 101 mmol/L (98-108); Creatinine, Blood 0.69 mg/dL (0.40-1.00); Glomerular Filtration Rate >60 (60-); Glucose, Blood 98 mg/dL (70-99); Potassium, Blood 3.2 mmol/L (3.5-5.5); Sodium, Blood 133 mmol/L (136-145)
--- NOTE | 2018-08-14 06:43 | NUR ---
PCU NOC SHIFT SUMMARY PATIENT ALERT AND ORIENTED TO SELF, LOCATION AND SITUATION - PATIENT HAS FLAT WITHDRAWN AFFECT. PATIENT DENIES ANY PAIN T/O SHIFT BUT DOES REPORT SOME ABD TENDERNESS. PATIENT HAS HX OF ISCEMIC BOWEL AND HAS OSTOMY IN PLACE. OSTOMY WAFFER AND BAG CHANGED X2 THIS DUE TO LEAKING - YELLOW LIQUID STOOL DRAINIGN OUT OF OSTOMY SITE - PATIENT EMPTIES IT HERSELF IN COMMODE. VSS. PATIENT WEAK WITH AMBULATION AND REQUIRES STANDBY ASSIST. PATIENT EATING SNACKS (PUDDING, COURTNEY CRACKERS T/O SHIFT). PATEINT DENIED ANY OTHER NEEDS T/O SHIFT. PATIENT HAS A VERY HARD TIME SWOLLOWING DUE TO HX OF THYROIDECTOMY DUE TO CANCER. RENAL INJURY IMPROVING PER LABS. WILL CONTINUE TO MONITOR AND GIVE REPORT TO DAYSHIFT RN.
--- NOTE | 2018-08-14 07:20 | NUR ---
RECEIVED REPORT FROM GLORY HALL, AND ASSUMED CARE OF PT.
[2018-08-14] MEDS ORDERED: DOXY100T53 PO (10:25)
[2018-08-14] MEDS ORDERED: Vsl#3 Capsule1 EACH PO (10:26)
--- NOTE | 2018-08-14 10:49 | NUR ---
PROVIDED PT WITH DISCHARGE INSTRUCTIONS AND ANSWERED ALL QUESTIONS. INSTRUCTED RE: INCREASING POTASSIUM IN DIET PT CONFIRMED THAT DR. HEBERT RECOMMENDED THE A DIET HIGHER IN POTASSIUM ITEMS. PT ABLE TO GIVE GOOD EXAMPLES OF FOODS HIGHER IN POTASSIUM. CALLED PRESCRIPTIONS INTO [facility]. REMOVED IV WNL. PATIENT AWAITING HER RIDE HOME.
== END 2018-08-14 11:30 | disposition home or self-care (01) | DRG 682 ==
LOC: ER 13:02 → PCU 16:18
PROVIDERS: Internal Medicine; ADMIT Internal Medicine
DX: N17.9 Acute kidney failure, unspecified (principal); J18.9 Pneumonia, unspecified organism; E87.1 Hypo-osmolality and hyponatremia; Z90.49 Acquired absence of other specified parts of digestive tract; Z85.850 Personal history of malignant neoplasm of thyroid; J44.9 Chronic obstructive pulmonary disease, unspecified; F17.200 Nicotine dependence, unspecified, uncomplicated; K44.9 Diaphragmatic hernia without obstruction or gangrene; E89.0 Postprocedural hypothyroidism; R26.89 Other abnormalities of gait and mobility
CPT/HCPCS: 36415; 71045; 80048; 80053; 81001; 84145; 84443; 84484; 85025; 87086; 93005; 93010; 96361; 96365; 99285-25; J0696; J3480; J7030; J7120

== ENCOUNTER 2018-12-01 13:30 | Inpatient (IN) | payer OTHER ==
[~2018-12-01] VITALS: Ht 152.4 cm; Wt 46.8 kg
[~2018-12-01 13:30] MED LIST changes: +ACET500 PO; +DOXY100T53 PO; +SERT100 PO; +Synthroid75 MCG PO; +VITAMIN D32000 UNI1 PO; +Vsl#3 Capsule1 EACH PO; +Zoloft100 MG PO
--- NOTE | 2018-12-02 08:11 | NUR ---
PATIENT WAS ADMITTED TO DAY SURGERY FOR HER PROCEDURE. THE PATIENT STATE THAT SHE HAS BEEN NPO.
--- NOTE | 2018-12-02 18:23 | NUR ---
SHIFT SUMMARY PT TO SURGICAL FLOOR THIS AFTERNOON S/P ILEOSTOMY TAKEDOWN. PAIN MANAGED WITH WIND TURBINE SERVICE TECHNICIAN AND GABAPENTIN AND TYLENOL SCHEDULED. WHITTINGTON IN PLACE AND FUNCTIONING, SOPHY WOUND VAC IN PLACE HAS MODERATE DRAINAGE. PT TOLERATING SMALL AMOUNTS OF FLUIDS AND JELLO. PT REPORTS BP IS LOW AT BASELINE AND DR LOMELI IS AWARE. PT USES CALL LIGHT APPROPRIATELY.
[2018-12-03 05:25] LABS: BASOPHILS ABSOLUTE AUTO 0.02 K/mm3 (0.00-0.23); BASOPHILS PERCENT AUTO 0 % (0-2); EOSINOPHILS ABSOLUTE AUTO 0.11 K/mm3 (0.00-0.68); EOSINOPHILS PERCENT AUTO 1 % (0-6); Hematocrit 29.5 % (33.0-51.0); Hemoglobin 9.8 g/dL (11.5-16.0); IMMATURE GRAN ABSOLUTE AUTO 0.04 K/mm3 (0.00-0.10); IMMATURE GRAN PERCENT AUTO 0 % (0-1); LYMPHOCYTES ABSOLUTE AUTO 1.46 K/mm3 (0.84-5.20); LYMPHOCYTES PERCENT AUTO 13 % (21-46); MONOCYTES ABSOLUTE AUTO 0.67 K/mm3 (0.16-1.47); MONOCYTES PERCENT AUTO 6 % (4-13); Mean Corpuscular HGB 28.9 pg (26.0-34.0); Mean Corpuscular HGB Conc 33.2 g/dL (31.5-36.5); Mean Corpuscular Volume 87 fL (80-100); Mean Platelet Volume 9.5 fL (9.1-12.4); NEUTROPHILS ABSOLUTE AUTO 8.85 K/mm3 (1.96-9.15); NEUTROPHILS PERCENT AUTO 79 % (41-73); Platelet Count 268 K/mm3 (150-400); RDW Coefficient Variation 14.7 % (11.7-14.2); RDW Standard Deviation 46.8 fL (35.1-46.3); Red Blood Cell Count 3.39 M/mm3 (3.80-5.20); White Blood Cell Count 11.15 K/mm3 (4.00-11.30)
[2018-12-03 05:42] LABS: Anion Gap 3 mmol/L (6-16); Blood Urea Nitrogen 12 mg/dL (8-24); Bun/Creatinine Ratio 18.1 (12.0-20.0); CO2, Blood 23 mmol/L (21-32); Chloride, Blood 107 mmol/L (98-108); Creatinine, Blood 0.66 mg/dL (0.40-1.00); Glomerular Filtration Rate >60 (60-); Glucose, Blood 86 mg/dL (70-99); Potassium, Blood 4.1 mmol/L (3.5-5.5); Sodium, Blood 133 mmol/L (136-145)
--- NOTE | 2018-12-03 05:51 | NUR ---
Pt A/O, Vital signs stable, B/P 80s/50s. No complaints of pain. BAKING POWDER MIXER pump in place. IVF infusing. Patient ambulating in hallway. Tolerating clears. Dela Cruz catheter removed, due to void. Oxygen saturations down to 87%. Educated on deep breathing. Placed on O2 @ 1L NC at this time.
--- NOTE | 2018-12-03 18:33 | NUR ---
SHIFT SUMMARY PT REPORTS LESS PAIN TODAY THAN YESTERDA. TECHNICIAN SUPPORT [employer]OCIATION DC'D TODAY AND PO PAIN MEDS STARTED. PT HAS BEEN INDEPENDANT IN ROOM AND WALKED TO [place]ER[place] WITH FAMILY TODAY. PT IS TOLERATING CLEAR LIQUID DIET AND IS URINATING. REPORTS PASSING GAS TODAY. WOUND VAC DRESSING WAS CHANGED BY DR. LOMELI THIS MORNING.
[2018-12-04 05:21] LABS: BASOPHILS ABSOLUTE AUTO 0.04 K/mm3 (0.00-0.23); BASOPHILS PERCENT AUTO 0 % (0-2); EOSINOPHILS ABSOLUTE AUTO 0.38 K/mm3 (0.00-0.68); EOSINOPHILS PERCENT AUTO 3 % (0-6); Hematocrit 30.7 % (33.0-51.0); Hemoglobin 10.1 g/dL (11.5-16.0); IMMATURE GRAN ABSOLUTE AUTO 0.05 K/mm3 (0.00-0.10); IMMATURE GRAN PERCENT AUTO 0 % (0-1); LYMPHOCYTES ABSOLUTE AUTO 1.08 K/mm3 (0.84-5.20); LYMPHOCYTES PERCENT AUTO 10 % (21-46); MONOCYTES ABSOLUTE AUTO 0.62 K/mm3 (0.16-1.47); MONOCYTES PERCENT AUTO 6 % (4-13); Mean Corpuscular HGB 29.5 pg (26.0-34.0); Mean Corpuscular HGB Conc 32.9 g/dL (31.5-36.5); Mean Platelet Volume 9.7 fL (9.1-12.4); NEUTROPHILS ABSOLUTE AUTO 9.05 K/mm3 (1.96-9.15); NEUTROPHILS PERCENT AUTO 81 % (41-73); Platelet Count 250 K/mm3 (150-400); Red Blood Cell Count 3.42 M/mm3 (3.80-5.20); White Blood Cell Count 11.22 K/mm3 (4.00-11.30)
[2018-12-04 05:24] LABS: Mean Corpuscular Volume 90 fL (80-100)
[2018-12-04 05:48] LABS: Anion Gap 5 mmol/L (6-16); Blood Urea Nitrogen 4 mg/dL (8-24); Bun/Creatinine Ratio 9.1 (12.0-20.0); CO2, Blood 22 mmol/L (21-32); Calcium, Blood 8.1 mg/dL (8.5-10.1); Chloride, Blood 114 mmol/L (98-108); Creatinine, Blood 0.44 mg/dL (0.40-1.00); Glomerular Filtration Rate >60 (60-); Glucose, Blood 88 mg/dL (70-99); Potassium, Blood 3.1 mmol/L (3.5-5.5); Sodium, Blood 141 mmol/L (136-145)
--- NOTE | 2018-12-04 06:33 | NUR ---
Patient alert and oriented. Complaints of pain to ABD, medicated as ordered. Up to bathroom independently. BM x2. Patient placed on 2-2.5L per NC while asleep. Encouraged IS use. Congested cough noted.
--- NOTE | 2018-12-04 08:36 | NUR ---
THERAPY WORKING WITH PT AT THIS TIME
--- NOTE | 2018-12-04 11:00 | NUR ---
DR. MCRAE IN TO SEE PT THIS MORNING. PLAN TO ADVANCE DIET TO FULL LIQUIDS.
--- NOTE | 2018-12-04 16:48 | NUR ---
SHIFT SUMMARY A&O, IND IN ROOM. SOPHY IN PLACE WITH DRESSING COMPRESSED AND DRY. ABD INCISION DRESSING C/D/I, CHANGED TODAY. HYPOTENSION AT BASELINE- ASYMPTOMATIC. SPO2 @ 96% 2L NC, DENIES SOB OR DIZZINESS. ENCOURAGED I.S. USE AND SPLINTED DEEP COUGHING. DISCUSSED SMOKING CESSASTION, DECLINED NICODERM PATCH. WORKED WITH THERAPY THIS MORNING. TOLERATING FULL LIQUID DIET. PAIN CONTROLLED WITH TYLENOL. REPORTS PASSING FLATUS, BM 2X, AND VOIDING WITHOUT DIFFICULTY.
--- NOTE | 2018-12-05 06:27 | NUR ---
SUMMARY PT CONT TO REQUIRE O2 N/C. DENIES LUNG DZ, BUT PRIOR CX NOTED HX COPD. DENIES SOB. UP IN HALLS TONIGHT. HAS HAD BM.
--- NOTE | 2018-12-05 12:23 | NUR ---
DR. MCRAE IN TO SEE PT. PLAN TO D/C HOME TODAY.
[2018-12-05] MEDS ORDERED: HYDR1TAB94 PO (13:24)
--- NOTE | 2018-12-05 14:24 | NUR ---
DISCHARGE NOTE PT D/C HOME WITH DAUGHTER AT 1420 TODAY. PT DECLINED WHEELCHAIR AND AMBULATED IND FROM UNIT. D/C INSTRUCTIONS, SCRIPT, WOUND CARE SUPPLIES, AND PERSONAL ITEMS GIVEN TO PATIENT/FAMILY UPON D/C. BOTH PT AND HER DAUGHTER VERBALIZED UNDERSTANDING OF INSTRUCTIONS AND DECLINED ANY FURTHER CONCERNS/QUESTIONS. PT REPORTS PAIN WELL CONTROLLED WITH TYLENOL, TOLERATING DIET, O2 SAT > 90% ON RA, VOIDING AND STOOLING WITHOUT DIFFICULTY. SOPHY IN PLACE WITH DRESSING COMPRESSED AND DRY. PT ENCOURAGED TO ATTEND FOLLOW-UP APPT WITH DOCTOR.
--- NOTE | 2018-12-05 14:35 | NUR ---
PT STATED SHE UNDERSTOOD D/C INSTRUCTIONS BUT WAS VERY ANXIOUS TO LEAVE AND RUSHED THROUGH D/C PROCESS.
== END 2018-12-05 14:23 | disposition home or self-care (01) | DRG 330 ==
LOC: SURS 12-02 07:45 → PRE IP 12-02 09:00 → SURS 12-02 14:57
PROVIDERS: ADMIT Surgery
PROC: 0DBB0ZZ Excision of Ileum, Open Approach (ICD-10-PCS; principal; 2018-12-02 09:00)
DX: Z43.3 Encounter for attention to colostomy (principal); E87.1 Hypo-osmolality and hyponatremia; N17.9 Acute kidney failure, unspecified; K55.9 Vascular disorder of intestine, unspecified; E78.5 Hyperlipidemia, unspecified; E03.9 Hypothyroidism, unspecified; J44.9 Chronic obstructive pulmonary disease, unspecified; F32.9 Major depressive disorder, single episode, unspecified
CPT/HCPCS: 36415; 80048; 85025; 86850; 86900; 86901; 88304; 97110; 97116; 97161; 97530; A9270; J0690; J1100; J1650; J2250; J2370; J2405; J2704; J2710; J3010; J7120

== ENCOUNTER 2021-10-11 04:11 | Inpatient (IN) | payer OTHER ==
[~2021-10-11] VITALS: Ht 152.4 cm; Wt 38.0 kg
[2021-10-11 06:53] LABS: BASOPHILS PERCENT AUTO 0 % (0-2); EOSINOPHILS PERCENT AUTO 0 % (0-6); Hematocrit 35.2 % (33.0-51.0); Hemoglobin 11.4 g/dL (11.5-16.0); IMMATURE GRAN ABSOLUTE AUTO 0.63 K/mm3 (0.00-0.10); IMMATURE GRAN PERCENT AUTO 2 % (0-1); LYMPHOCYTES ABSOLUTE AUTO 0.99 K/mm3 (0.84-5.20); LYMPHOCYTES PERCENT AUTO 3 % (21-46); MONOCYTES PERCENT AUTO 5 % (4-13); Mean Corpuscular HGB 23.3 pg (26.0-34.0); Mean Corpuscular HGB Conc 32.4 g/dL (31.5-36.5); Mean Corpuscular Volume 72 fL (80-100); Mean Platelet Volume 8.9 fL (9.1-12.4); NEUTROPHILS PERCENT AUTO 89 % (41-73); Platelet Count 499 K/mm3 (150-400); RDW Coefficient Variation 17.7 % (11.7-14.2); RDW Standard Deviation 45.9 fL (35.1-46.3); Red Blood Cell Count 4.89 M/mm3 (3.80-5.20); White Blood Cell Count 29.12 K/mm3 (4.00-11.30)
[2021-10-11 07:15] LABS: Albumin, Blood 2.7 g/dL (3.4-5.0); Albumin/Globulin Ratio 0.4 (0.8-1.8); Bilirubin, Total 0.3 mg/dL (0.1-1.0); Bun/Creatinine Ratio 34.6 (12.0-20.0); Calcium, Blood 13.9 mg/dL (8.5-10.1); Creatinine, Blood 1.88 mg/dL (0.40-1.00); Globulin, Blood 6.5 g/dL (2.2-4.0); Potassium, Blood 4.6 mmol/L (3.5-5.5); Total Protein, Blood 9.2 g/dL (6.4-8.2)
[2021-10-11 08:15] LABS: Influenza A, PCR NEGATIVE (NEGATIVE); Influenza B, PCR NEGATIVE (NEGATIVE); Resp Syncytial Virus, PCR NEGATIVE (NEGATIVE); SARS-Cov-2 (COVID-19) PCR, MMC NEGATIVE (NEGATIVE)
[2021-10-11 08:16] LABS: International Normalized Ratio 1.06; Prothrombin Time Results 11.1 Sec (9.7-11.5)
[2021-10-11 08:39] LABS: Source, Urine Clean Catch
[2021-10-11 08:56] LABS: Appearance, Urine Cloudy (Clear); Bilirubin, Urine Neg (Neg); Blood, Urine 5+ (Neg); Color, Urine Yellow (P-Yellow); Glucose Qualitative, Urine Neg (Neg); Leukocyte Esterase, Urine 3+ (Neg); Nitrite, Urine Pos (Neg); Protein, Urine 3+ (Neg); Urobilinogen, Urine NORM (Normal)
[2021-10-11 09:15] LABS: Ketones, Urine Neg (Neg)
[2021-10-11 09:21] LABS: Bacteria Many /hpf; Red Blood Cells, Urine TNTC /hpf (0-2); Squamous Epithelial Cells Not Seen /hpf (Few); White Blood Cells, Urine TNTC /hpf (0-5)
[2021-10-11 11:55] LABS: Base Excess Venous -14.6 mmol/L; Bicarbonate Venous 14.3 mmol/L (24.0-30.0); PCO2 Venous 22.6 mmHg (38-42); PO2 Venous 196 mmHg (38-42); pH Blood Venous 7.32 (7.34-7.37)
--- NOTE | 2021-10-11 17:03 | NUR ---
ARRIVAL TO PCU/SWITCH TO COMFORT CARE/SHIFT SUMMARY THE PATIENT ARRIVED AT APPROX 1530. PATIENT ARRIVED FROM ED VIA GURNEY AND TRANSFERD TO PCU BED VIA SLIDER SHEET. PATIENT VSS. TELE SR/ST. PATIENT IS ALERT AND ORIENTED X4. PERRLA. NEURO INTACT. PATIENT BASELINE IS INDEPDENDENT TO DO OWN ADLS, BUT NEEDS ASSISTANCE DUE TO HER FEET CIRCULATION AND BEING UNABLE TO WALK FROM THE PAIN. PATIENT REPORTS PAIN RATED AT 9 IN BILATERAL LOWER EXTREMITIES. PATIENT REPROTS NO SHORTNESS OF BREATH. CLEAR LUNG SOUNDS. PATIENT REPORTS NO CHEST PAIN/PRESSURE. PATEINT RADIAL PULSE IS STRONOG. PATIEN HAS ABDSENT PEDIS PULSES AND UNABLE TO FIND THEM VIA DOOPLER. ABLE TO FIND TIBAL PULSE VIA DOOPLER. PATIENT BLE ARE CYANOTIC AND COOL. SEE COMPLEX LIMB ASSESSMENT IN ASSESSMENT SECTION. PATIENT ABD IS ACTIVE NONTENDER. PATIENT HAS FOUL SMELLING URINE THAT IS CARNBERRY COLORATION. PATIENT IS USING THE BEDPAN. REGGIEN CAN ROLL WITH ONE PERSON. SEE ADMISSION ASSESSMENT FOR FURTHER DETIALS. PATIENT ONCE SETTLING INTO UNIT WAS WANTING TO LEAVE AND GO HOME. THIS RN AND SPEECH CORRECTION ASSISTANT PROVIDED EDUCATION THE NEED TO STAY IN THE HOSPITAL DUE TO POOR PERFUSION. PATIENT STILL WANTING TO LEAVE. SON AT BEDSIDE AND WAS ABLE TO HELP PATIENT CALM DOWN AND REASON WITH HER TO STAY. DONATO RN CALLED MD HEBERT ABOUT PATIENT SITUATION, AND DONATO HOLDER THEN CALLED MD DAVIS WHO CAME TO SEE THE PATIENT. 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 MD DISCUSSED THIS WITH THE PATIENT AND PATIENT SON AND PROVIDED EDUCATION. PATIENT STILL WANTING TO GO HOME. MD DAVIS DISCUSSED COMFORT CARE AND GOING HOME ON HOSPICE, WHICH PATIENT AGREED TO AND SO DID THE SON. PATIENT UNABLE TO GO HOME TODAY ON HOSPICE DUE TO IT BEING TOO LATE, BUT THE PLAN IS TO DISCHARGE TOMORROW ON HOSPICE SO SHE CAN GO HOME. DISCUSSED CODE STATUS WITH PATIENT AND SON. PATIENT AGREED TO BE A DNR AND CODE STATUS CHANGED. PALLIATIVE CARE INFORMED. COMFORT CARE ORDERS IN. ORIENTED TO ROOM AND CALL LIGHT. INFORMED PATIENT AND SON TO PLEASE CALL IF ANY QUESTIONS COME UP. THIS RN USED THERPAEUTIC COMMUNICATION AND ACTIVE LISTENING. PLAN IS TO MAKE PATIENT COMFORTABLE POSSIBLE. HEPARIN DRIP DC. MED STATUS WITH NO TELE. CALL LIGHT IS WITHIN REACH AND BED IN LOWEST POSITION.
[2021-10-12 04:34] LABS: Hematocrit 32.1 % (33.0-51.0); Hemoglobin 10.8 g/dL (11.5-16.0); Mean Corpuscular HGB Conc 33.6 g/dL (31.5-36.5); Mean Corpuscular Volume 71 fL (80-100); Mean Platelet Volume 9.4 fL (9.1-12.4); Platelet Count 443 K/mm3 (150-400); RDW Coefficient Variation 18.1 % (11.7-14.2); RDW Standard Deviation 46.1 fL (35.1-46.3); White Blood Cell Count 23.15 K/mm3 (4.00-11.30)
[2021-10-12 05:16] LABS: Magnesium, Blood 3.2 mg/dL (1.6-2.4); Thyroxine (T4) 9.4 ug/dL (4.8-13.9)
[2021-10-12 05:41] LABS: Albumin, Blood 2.5 g/dL (3.4-5.0); Anion Gap 15 mmol/L (6-16); Blood Urea Nitrogen 68 mg/dL (8-24); CO2, Blood 15 mmol/L (21-32); Calcium, Blood 12.2 mg/dL (8.5-10.1); Chloride, Blood 107 mmol/L (98-108); Creatinine, Blood 1.51 mg/dL (0.40-1.00); Glomerular Filtration Rate 37 (60-); Glucose, Blood 106 mg/dL (70-99); Phosphorus, Blood 8.6 mg/dL (2.5-4.9); Potassium, Blood 4.1 mmol/L (3.5-5.5); Sodium, Blood 137 mmol/L (136-145)
--- NOTE | 2021-10-12 06:15 | NUR ---
OBSERVED PT TO BE TACHYPNEIC AND WITH LABORED BREATHING. PLACED OXYGEN ON PATIENT AND ADMINISTERD MORPHINE FOR COMFORT. CALLED PATIENT;S SON BYRON AND DAUGHTER CHAZ TO ADVISE OF CHANGE IN CONDITION. BOTH TO COME TO THE BEDSIDE VIPIN.
--- NOTE | 2021-10-12 07:14 | NUR ---
FAMILY IS AT THE BEDSIDE - SON BYRON, DAUGHTER CHAZ AND GRANDCHILDREN
--- NOTE | 2021-10-12 07:18 | NUR ---
EARLY IN THE SHIFT THE PATIENT COMPLAINED REPEATEDLY OF PAIN TO HER LOWER EXTREMITIES, RATING IT 8-10/10. SHE GOT NO RELIEF WITH MORPHINE. I REACHED OUT THE DR. Yuliet RAND AND REQUESTED DILAUDID FOR PAIN RELIEF. PT RESPONDED WELL TO DILAUDID AND DID GET SOME PAIN RELIEF. SHE WAS ABLE TO SLEEP FOR A LITTLE MORE THAN 4 HOURS. UPON WAKING IN THE 0400 HOUR, MS. CAREY WAS LESS COMMUNICATIVE VERBALLY THAN SHE WAS EARLIER IN THE SHIFT. SHE DENIED HAVING ANY PAIN AND APPEARED COMFORTABLE. SHE WAS QUICK TO FALL BACK TO SLEEP AND APPEARED COMFORTABLE DURING MY 0600 ROUNDS. PERIODIC CHECKS OF HER OXYGEN SAUTRATION LEVELS THROUGHOUT THE NIGHT WERE IN THE 90 PERCENTILE RANGE ON ROOM AIR. HEART RATES IN THE LOW 100S. AT APPROXIMATELY 0610, I WALKED BY THE ROOM AND COULD HEAR SOME LABORED BREATHING. I OBSERVED MS. CAREY TO BE STARING OFF TO THE RIGHT, SHE FELT CLAMMY TO THE TOUCH, SHE WAS TACHYPNEIC AND DYSPNEIC. I ADMINISTERED MORPHINE ORDERED AND REACHED OUT TO BOTH HER SON AND DAUGHTER. THEY ARRIVED AT THE BEDSIDE SHORTLY THEREAFTER. HANDOFF REPORT GIVEN TO KRYSTAL.
--- NOTE | 2021-10-12 09:33 | NUR ---
CARE ASSUMPTION/TRANSFER TO MED FLOOR THIS RN ASSUMED CARE FROM TINA HOLDER AT 0700. PATIRICKY HAS A FACES SCALE OF 8 AND RECEIVED PAIN MEDICATION PER EMAR. FAMILY IS AT BEDSIDE WITH PATIENT. PATIENT SKIN IS COOL TO TOUCH AND MOTTLING IN LOWER EXTREMITIES BILATERALLY. AUDIBLE CRACKLES IN LUNGS CAN HEAR FROM BEDSIDE. PATIENT REPOSITIONED. COLLATOR DONATO SEWELL GAVE REPORT TO MEDICAL FLOOR RN. PATIENT LEFT PCU AT 0838 TO NEW ROOM ON MEDICAL FLOOR. FAMILY WITH PATIENT. ALL OF PATIENT BELONGINGS WITH PATIENT.
--- NOTE | 2021-10-12 10:09 | NUR ---
MS CAREY WAS TRANSFERED FROM PCU TO MEDICAL UNIT AT 0840. FAMILY PRESENT AND AT BEDSIDE. PT NOT RESPONSIVE, CYANOTIC, LEGS MOTTLED AND PURPLE. MORPHINE GIVEN TO KEEP HER COMFORTABLE PER DAUGHTERS REQUEST.
--- NOTE | 2021-10-12 10:36 | NUR ---
Comfort care visit made. Pt appears to be actively dying with agonal respirations, apnea at times. RR 8-10/min. Pt appears comfortable. Eyes open, not tracking and rolled back. No family at bedside at this time. They were contacted early this am re: rapid decline in wakefulness/overall condition.
--- NOTE | 2021-10-12 12:46 | NUR ---
Called to room by RN after family members arrived. Upon entering room, I found pt cyanotic, without respirations or pulse. RN verified with stethoscope. Gdau understandably crying, distraught. Second family member calm, asking appropriate questions on next steps. RN outlined process for family and I brought them list of local mortuaries to choose from. also made a TOD visit after RN called her.
--- NOTE | 2021-10-12 13:25 | NUR ---
BOTH DAUGHTERS WERE WITH MS CAREY AT HER TIME OF . DR VALENTINE CAME TO BEDSIDE, PRONOUNCED TIME OF TO BE 1238. FAMILY SUPPORTED.
== END 2021-10-12 12:38 | DRG 872 ==
LOC: ER 04:11 → ERHOLD 11:48 → PCU 11:48 → EDBEDREQ 12:23 → PCU 15:37 → MEDS 10-12 08:40
PROVIDERS: Emergency Medicine; ADMIT Internal Medicine
DX: A41.9 Sepsis, unspecified organism (principal); N12 Tubulo-interstitial nephritis, not specified as acute or chronic; N17.9 Acute kidney failure, unspecified; R64 Cachexia; C78.00 Secondary malignant neoplasm of unspecified lung; E87.2 Acidosis; Z68.42 Body mass index [BMI] 45.0-49.9, adult; Z51.5 Encounter for palliative care; Z66 Do not resuscitate; Z20.822 Contact with and (suspected) exposure to COVID-19; F17.200 Nicotine dependence, unspecified, uncomplicated; E83.52 Hypercalcemia; N18.9 Chronic kidney disease, unspecified; I70.223 Atherosclerosis of native arteries of extremities with rest pain, bilateral legs; C55 Malignant neoplasm of uterus, part unspecified; E03.9 Hypothyroidism, unspecified; N28.1 Cyst of kidney, acquired; R65.20 Severe sepsis without septic shock; J44.9 Chronic obstructive pulmonary disease, unspecified; Z88.8 Allergy status to other drugs, medicaments and biological substances; Z90.89 Acquired absence of other organs; Z93.2 Ileostomy status; Z90.721 Acquired absence of ovaries, unilateral; Z98.890 Other specified postprocedural states; Z98.891 History of uterine scar from previous surgery; Z79.899 Other long term (current) drug therapy
CPT/HCPCS: 0241U; 36415; 71045; 71250; 75635; 76770; 80053; 80069; 81001; 82803; 83605; 83735; 83880; 83970; 84145; 84436; 84443; 85025; 85027; 85520; 85610; 85730; 87040; 87077; 87086; 87186; 93005; 93010; 93925; 94760; 96365-59; 96366-59; 96375-59; 99291-25; A9270; J0696; J1170; J1644; J2270; J7030; Q9967